=== PATIENT | male | born 1950 | race Caucasian/White ===

== ENCOUNTER 2016-10-16 06:21 | Day surgery (SDC) | payer OTHER ==
[2016-10-16] MEDS ORDERED: FENTANYL 100 MCG/2 ML VIAL ONE (07:31)
[2016-10-16] MEDS ORDERED: LACTATED RINGERS 1,000 ML IV SCH (08:15)
[2016-10-16] MEDS ORDERED: PROPOFOL 40 ML IV ONE (09:33)
--- NOTE | 2016-10-18 11:37 | SURGPATH ---
[facility] [address] [place] [id number] Patient Name: EMMA CANO MR#: [id number] : 1950 Gender: M Specimen #: [id number] Collected: 10/16/2016 Received: 10/17/2016 Reported: 10/18/2016 Submitting Phys: CLAIRE PADILLA Copy To Phys: [facility] Clinical History / Pre-Operative Diagnosis: SCREENING COLONOSCOPY Specimen Source / Surgical Procedure Performed: CECAL POLYP BIOPSY X2 Interpretation: CECUM, POLYPS, BIOPSY: - TUBULAR ADENOMAS Electronically Signed Out Glendy Sen M.D. Gross Description: The specimen is received in a formalin filled container labeled with the patient's name and "cecal polyp biopsy x2". Two leiva biopsies are 0.3 and 0.5 cm. Totally embedded in one cassette. Bhargav Mccollum PAdama Microscopic Description: Sections show fragments of adenomatous colonic mucosa without high grade dysplasia. 1: 84312 D12.0
== END 2016-10-16 08:45 | disposition home or self-care (01) ==
LOC: SDC 06:21
PROVIDERS: ATTEND Surgery
DX: Z12.11 Encounter for screening for malignant neoplasm of colon (principal); Z80.0 Family history of malignant neoplasm of digestive organs; K57.30 Diverticulosis of large intestine without perforation or abscess without bleeding; D12.0 Benign neoplasm of cecum
CPT/HCPCS: 45380; J3010